=== PATIENT | female | born 1940 | race Caucasian/White ===

== ENCOUNTER → 2020-09-27 13:11 | Outpatient (BNVA) | payer MEDICARE, SELFPAY | PROVIDERS: Visit Provider Internal Medicine Cardiovascular Disease | DX: I51.7 Cardiomegaly (principal); I25.3 Aneurysm of heart; I83.90 Asymptomatic varicose veins of unspecified lower extremity | CPT/HCPCS: 93005; 99212 ==

== ENCOUNTER → 2021-09-26 12:53 | Outpatient (BNVA) | payer MEDICARE, SELFPAY | PROVIDERS: PCP Family Medicine; Visit Provider Internal Medicine Cardiovascular Disease | DX: I51.7 Cardiomegaly (principal); I25.3 Aneurysm of heart; R00.2 Palpitations | CPT/HCPCS: 93005; 99212 ==

== ENCOUNTER → 2021-11-14 09:22 | Outpatient (REF) | payer MEDICARE, SELFPAY ==
--- NOTE | 2021-11-14 09:25 | CA_ITS ---
Transthoracic Echocardiogram Patient (Last, First, Middle): Maribel Murray A Gender: Female Date of : 1940 Age: 81 Procedure Date: 11/14/2021 Procedure Type: Transthoracic Echocardiogram Location: OP Height: 170.18 cm Weight: 62.6 kg BSA: 1.73 m2 Heart Rate: bpm BP: 132 / 84 mmHg Email Developer: JULIO Referring MD: Horacio Stevenson MD Symptoms: I25.3 - Aneurysm of heart Study Quality: Good Conclusions: - Normal left ventricular size and systolic function. - Normal right ventricular cavity size and systolic function. - The left atrium is mildly dilated. The right atrium is severely dilated Findings Left Ventricle Normal left ventricular size and systolic function. There is mildly increased left ventricular wall thickness. The visually estimated ejection fraction is between 65-70%. There is no evidence of regional wall motion abnormalities. Diastolic function is normal for age. Normal global longitudinal strain. Right Ventricle Normal right ventricular cavity size and systolic function. Atria The left atrium is mildly dilated. The right atrium is severely dilated. Aortic Valve Normal aortic valve structure and function. There is no aortic valve stenosis. There is no aortic valve regurgitation. Mitral Valve The mitral valve appears normal. There is trace mitral valve regurgitation. There is no mitral valve stenosis. Pulmonic Valve Normal pulmonic valve structure and function. There is trace pulmonic valve regurgitation. Tricuspid Valve Normal tricuspid valve structure. There is mild tricuspid valve regurgitation. Normal right atrial pressure. There is no evidence of pulmonary hypertension. Great Vessels All visible segments of the aorta are normal in size. The visualized portions of the pulmonary artery and branches are normal. Venous The inferior vena cava is normal in size and collapses greater than 50% with inspiration. Pericardium/Pleural There is no evidence of pericardial effusion. Prior Study Comparison Changes noted compared to prior study dated: 08/14/2018. RA severely dilated. Measurements 2D Linear Measurements IVSd: 1.01 0.6-0.9/0.6-1.0 cm LVIDd: 4.44 3.9-5.3/4.2-5.9 cm LVIDd Index: 2.57 2.4-3.2/2.2-3.1 cm/m2 LVIDs: 2.61 2.0-3.6 cm LVPWd: 0.94 0.7-1.1 cm LA Diam: 3.40 2.7-3.8/3.0-4.0 cm LAIDs Index: 1.97 1.5-2.3 cm/m2 LV Mass: 180.20 67-162/88-224 g LV Mass Index: 104.16 43-95/49-115 g/m2 LVOT Diam: 2.00 3.0+(-)1.3 cm 2D Systolic Function EF 4C: 76.90 >55% EF 2C: 78.90 >55% EF BiP: 78.30 >55% Mitral Valve MV Pk E: 0.77 MV PK A: 0.67 MV Decel Time: 270.00 E/A: 1.10 E'Lateral: 12.20 E'Medial: 7.40 E/E' Med: 10.30 E/E' Lat: 6.30 PHT: 79.00 MVA PHT: 2.78 Decel [place]: 2.84 Aortic Valve AoV Pk Luis: 1.47 AoV Mn Luis: 1.14 AoV VTI: 0.40 AoV Pk Grad: 9.00 Aov Mn Grad: 6.00 RUBEN Cont.VTI: 2.10 LVOT LVOT Pk Luis: 1.06 LVOT Mn Luis: 0.77 LVOT VTI: 0.26 LVOT Pk Grad: 4.00 LVOT Mn Grad: 3.00 LVOT Diam: 2.00 LVOT Area: 3.14 Diastolic Function MV Pk E: 0.77 MV Pk A: 0.67 E/A: 1.10 E'Medial: 7.40 E/E' Med: 10.30 E' Laterial: 12.20 E/E' Lat: 6.30 Right Ventricle TAPSE (mm): 24.20 TVS' Luis: 13.80 Tricuspid Valve TR Pk Luis: 2.82 TR Pk Grad: 32.00 RA Press: 3.00 RVSP: 35.00 Great Vessels Aorta Sinus of Valsalva: 3.17 2.0-3.[address] [place]: 2.83 1.7-3.4 cm Ao Asc: 3.20 2.1-3.4 cm Ao Arch: 3.00 Updated in Other Vendor System with Status of Final Horacio Stevenson MD electronically signed on 11/15/2021 1:10:54 PM with status of Final
== END ==
LOC: HO.CARD 09:22
PROVIDERS: PCP Family Medicine; Visit Provider Internal Medicine Cardiovascular Disease
DX: I25.3 Aneurysm of heart (principal)
CPT/HCPCS: 93306

== ENCOUNTER → 2021-12-10 13:10 | Outpatient (BNVA) | payer MEDICARE, SELFPAY | PROVIDERS: PCP Family Medicine; Referring Provider Family Medicine; Visit Provider Internal Medicine Cardiovascular Disease | DX: I51.7 Cardiomegaly (principal); R00.2 Palpitations; Z79.82 Long term (current) use of aspirin | CPT/HCPCS: 99212 ==

== ENCOUNTER 2022-06-12 13:48 | Outpatient (REF) | payer MEDICARE, SELFPAY ==
[2022-06-14 14:41] LABS: IgA 111 mg/dL (70-320); IgG 985 mg/dL (600-1540); IgM 61 mg/dL (50-300)
== END 2022-06-12 13:49 | disposition home or self-care (01) ==
LOC: HO.LAB 13:48
PROVIDERS: PCP Family Medicine; Visit Provider Internal Medicine Cardiovascular Disease
DX: G62.9 Polyneuropathy, unspecified (principal); I51.7 Cardiomegaly; I25.3 Aneurysm of heart
CPT/HCPCS: 82784; 86334; 86335; 99212

== ENCOUNTER 2022-06-17 07:21 | Day surgery (SDC) | payer MEDICARE, SELFPAY ==
--- NOTE | 2022-06-14 13:11 | MHC.SHP ---
Pre-Procedural Eval Section A Date of Service: 06/14/22 The patient is an INPATIENT: No Changes since office visit: No Cold of Flu in the past 2 weeks, No New Medical Problems, No Changes in Medication and No Patient answered all questions The History & Physical has been completed within 30 days and I have reviewed it.: Yes Section B Chief Complaint: Age-related nuclear cataract, right eye Allergies: Allergies Allergy/AdvReac Type Severity Reaction Status Date / Time No Known Allergies Allergy Verified 06/12/22 13:14 [No Known Allergies*] Plan Diagnosis/Plan: Unchanged I have reviewed the history and physical and performed a pertinent physical examination on my patient. No changes have occurred unless specified.
[2022-06-17 08:17] VITALS: BMI 21.6
[2022-06-17 08:19] VITALS: BP 143/62; PULSE 57; RESP 18; TEMP 36.6; O2SAT 96
[2022-06-17] MEDS: Tetracaine HCl/PF 0.5% Oph Sol 4 ML DROPS 1 DROP EYE-RIGHT (08:22)
[2022-06-17] MEDS: Cyclopentolate 1 % Ophth Sol 2 ML DRPBTL 1 DROP EYE-RIGHT ×3 (08:23→08:37)
[2022-06-17] MEDS: Ketorolac Tromethamine 0.5% Op 5 ML DROPS 1 DROP EYE-RIGHT ×3 (08:23→08:38)
[2022-06-17] MEDS: Phenylephrine HCL 2.5% Oph SoL 2 ML BOTTLE 1 DROP EYE-RIGHT ×3 (08:23→08:38)
[2022-06-17] MEDS: Tropicamide 1 % Ophth Sol 3 ML BTL 1 DROP EYE-RIGHT ×3 (08:23→08:37)
--- NOTE | 2022-06-17 08:39 | HO.ANESPROP2 ---
HPI - Anesthesia Eval Consult details Narrative: Right eye cataract PMF Active Problems Active Problems: All Active Problems (Updated 06/12/22 @ 21:05 by Horacio Stevenson MD) Neuropathy (Acute) Biatrial enlargement (Acute) Atrial septal aneurysm (Acute) Varicose vein of leg (Acute) Palpitations (Acute) Past Medical History Medical History Allergic rhinitis Biatrial enlargement Chronic cough Hypothyroid Osteoporosis Family History Family History Mother Colon cancer Father COPD (chronic obstructive pulmonary disease) Family history of problems with anesthesia: No Surgical History Surgical History History of cataract surgery History of excision of pterygium History of lumpectomy History of tonsillectomy Hx of colonoscopy History of Problems with Anesthesia: No Social History Social History Alcohol intake: current Alcohol intake frequency: 0-2 drinks per day Alcohol type: wine Patient Tobacco Use Status: Former Tobacco user Quit Date: 1989 Smoked: 20 +/- Advance Directives: No Advance Directives Information Provided: Yes Meds Allergies Allergy/AdvReac Type Severity Reaction Status Date / Time No Known Allergies Allergy Verified 06/12/22 13:14 [No Known Allergies*] Active Medications: Current Medications Povidone Iodine (Povidone Iodine 5 % Ophth Soln 30 Ml Bottle) 1 appl EYE-RIGHT PREOP PRN PRN Reason: Pre-Op Surgical Implant Prophy Home Medications Medication Instructions Recorded Confirmed Last Taken Type aspirin 81 mg tablet,delayed 81 mg PO DAILY 09/27/20 06/12/22 Unknown History release (Adult Low Dose Aspirin) calcium citrate 315 mg 1 tab PO DAILY 09/27/20 06/12/22 Unknown History calcium-vitamin D3 6.25 mcg (250 unit) tablet (Citracal + Vitamin D Maximum) levothyroxine 75 mcg tablet 75 mcg PO DAILY 09/27/20 06/12/22 Unknown History multivitamin 1 tab PO DAILY 09/27/20 06/12/22 Unknown History cetirizine 10 mg tablet 10 mg PO DAILY 06/12/22 06/12/22 Unknown History melatonin 5 mg tablet 5 mg PO BEDTIME PRN Sleep 06/12/22 06/12/22 Unknown History Exam Exam Date and Time: June 17, 2022 0839 Height,Weight and Vital Signs: Height 5 ft 7 in Weight 62.596 kg Last Vital Signs Temp 97.9 F 06/17/22 08:19 Pulse 57 06/17/22 08:19 Resp 18 06/17/22 08:19 BP 143/62 H 06/17/22 08:19 Pulse Ox 96 06/17/22 08:19 O2 Del Method 06/17/22 08:19 Airway Mallampati Class: II TM Dist: >3cm Neck ROM: Full Loose/Missing/Broken Teeth: No Heart: rrr+s1s2 Lungs: cta b/l Assessment and Plan Assessment Anesthesia Assessment: Anesthesia Plan Discussed and Chart Reviewed Final Anesthetic Review Family History of Problems with Anesthesia: No History of Problems with Anesthesia: No NPO: Yes ASA Class: III Final Preanesthetic Review: No Changes in Pt Med Stat, Meds/Allgs Chart Reviewed, Consent Obtained/Reviewed and Anes Risks/Benef Reviewed Patient Risk: Intermediate Procedure Risk: Low Assessment/Block/Sedation in SS: Assess/Block/Sedation-SS Anesthetic Plan Anesthetic Plan: MAC: and Agree w/ Assess. and Plan Disposition: Standard PACU
--- NOTE | 2022-06-17 09:16 | HO.PNOPHT ---
Ophthalmology Procedure Procedure Date of Service: 06/17/22 Ophthalmology Viscoelastic: Healon Duet Dual Pack Pro Ophthalmology Lenses: CHASE [id number] (24.5) Procedure Notes: PREOPERATIVE DIAGNOSIS: Uncontrolled glaucoma right eye POSTOPERATIVE DIAGNOSIS: Same PROCEDURE: Trabeculectomy right eye SURGEON: Juvenal Haile M.D. ANESTHESIA: Topical with sedation ESTIMATED BLOOD LOSS: None COMPLICATIONS: None After obtaining informed consent, the patient was brought to the operating room suite and placed in a supine position. After adequate sedation per Anesthesia, drops of Tetracaine were given to the right eye. The eye was then prepped and draped in the usual sterile fashion. The operating room microscope was positioned over the right eye and a lid speculum placed. A peritomy was created utilizing a combination of sharp and blunt dissection with Autumn scissors. Hemostasis was then achieved utilizing a wet-field cautery. A guarded blade was utilized to create a partial thickness scleral incision 2 mm posterior to the limbus. This was advanced with a crescent blade into clear cornea. A paracentesis was created temporally, followed by instillation of Viscoelastic superiorly. Attention was directed back to the scleral incision site where the anterior chamber was entered utilizing a 2.85 mm keratome. A Maggi punch was utilized to remove trabecular tissue. Aqueous humor was monitored for adequate egress followed by closure of the conjunctiva with Vicryl suture. BSS was instilled into the anterior chamber creating a superior bleb with no obvious leaks superiorly. The lid speculum was removed. Topical drops of antibiotics, steroids and Atropine were then given. The patient tolerated the procedure well and will be followed up in the a.m.
--- NOTE | 2022-06-17 09:17 | HO.PNOPHT ---
Ophthalmology Procedure Procedure Date of Service: 06/17/22 Ophthalmology Viscoelastic: Healon Duet Dual Pack Pro Ophthalmology Lenses: TECNIS AH7667 (27.5) Procedure Notes: PREOPERATIVE DIAGNOSIS: Decreased visual acuity right eye secondary to cataract POSTOPERATIVE DIAGNOSIS: Same PROCEDURE: Right cataract extraction with intraocular lens insertion SURGEON: Juvenal Haile M.D. ANESTHESIA: Topical/MAC ESTIMATED BLOOD LOSS: None COMPLICATIONS: None After obtaining informed consent, the patient was brought to the operating room suite and placed in the supine position. After adequate sedation per anesthesia, topical drops of Tetracaine were given to the right eye. The eye was then prepped and draped in the usual sterile fashion. The operating room microscope was then positioned over the operative eye and a lid speculum placed. A paracentesis was created. Viscoelastic was then instilled into the anterior chamber. A three plane incision was then created temporally, utilizing a 2.85 mm keratome. Capsulotomy forceps were then utilized to create a circular tear capsulotomy. Hydrodissection and hydrodelineation were carried out until adequate mobilization of the nucleus occurred. Phacoemulsification was then utilized to remove the dense central nucleus followed by removal of the cortical material utilizing the automated aspiration irrigation unit. Viscoelastic was instilled into the posterior capsular bag followed by placement of a posterior chamber intraocular lens without difficulty. The residual Viscoelastic was then removed utilizing the automated IA machine. The wound was checked and found to be watertight. The patient tolerated the procedure well and the lid speculum was removed. Intracameral injection of Vigamox 0.1 mL followed by a subtenon injection of Kenalog-40 0.2 mL were administered. The patient will be seen in the a.m.
[2022-06-17 09:39] VITALS: BP 137/65; PULSE 51; RESP 16; TEMP 36.4; O2SAT 100
== END 2022-06-17 10:29 | disposition home or self-care (01) ==
PROVIDERS: PCP Family Medicine; Visit Provider Ophthalmology
PROC: (CPT 66985; principal; 2022-06-17 09:10)
DX: H25.11 Age-related nuclear cataract, right eye (principal); H54.7 Unspecified visual loss; Z96.1 Presence of intraocular lens; E03.9 Hypothyroidism, unspecified; M81.0 Age-related osteoporosis without current pathological fracture; Z79.82 Long term (current) use of aspirin; Z88.8 Allergy status to other drugs, medicaments and biological substances; Z87.891 Personal history of nicotine dependence
CPT/HCPCS: 66984; J2250; J3300; V2632

== ENCOUNTER → 2022-06-27 07:25 | Outpatient (REF) | payer MEDICARE, SELFPAY ==
--- NOTE | 2022-06-27 07:27 | HM_ITS ---
Conclusion: 1. Patient was monitored for total period of 7 days and 3 hours 2. Baseline was normal sinus with average heart rate of 55 beats per minute 3. Frequent sinus bradycardia with 68% of time heart rate below 60 beats per minute with lowest heart rate of 41 beats per minute 4. No significant pauses noted 5. Total of 8089 PACs accounting for frequent PACs, 2.2% of total burden. 6. Total of 11 short episodes of supra tachycardia longest lasting 7 beats at 187 beats per minute 7. Patient reported to events 1 of which correlated with isolated PACs MTDD
== END ==
LOC: HO.CARD 07:25
PROVIDERS: PCP Family Medicine; Visit Provider Internal Medicine Cardiovascular Disease
DX: R00.2 Palpitations (principal)
CPT/HCPCS: 93242

== ENCOUNTER 2023-06-02 12:37 | Outpatient (AMB) | payer MEDICARE, SELFPAY ==
--- NOTE | 2023-06-02 12:43 | MHC.OFFVIS ---
Intake Vital Signs 06/02/23 12:44 Height 5 ft 7 in Weight 141 lb 1.533 oz BMI 22.1 BP 120/70 Blood Pressure Location Lt brachial Position Sitting Pulse 58 Intake Visit Reasons: 1 yr f/up Intake Note: 1 year follow-up with ekg feeling good Host Coordinator Required: No Allergies No Known Allergies [No Known Allergies*] Allergy (Verified 06/17/22 08:41) Medication List - Last Reconciled 06/02/23 by Horacio Stevenson MD aspirin (Adult Low Dose Aspirin) 81 mg PO DAILY calcium citrate-vitamin D3 315 mg-6.25 mcg (250 unit) (Citracal + Vitamin D Maximum) 1 tab PO DAILY cetirizine 10 mg PO DAILY levothyroxine 75 mcg PO DAILY magnesium 200 mg PO DAILY multivitamin 1 tab PO DAILY HPI HPI Comments History of Present Illness Details 81 female who had routine ECG before eye surgery for pterygium. ECG showed atrial enlargement. She had echo which showed mild biatrial enlargement and interatrial septal aneurysm without PFO. She is active and has no symptoms. She has no h/o stroke. Echo: normal EF, interatrial septal aneurysm, biatrial enlargement, moderate TR, mild pulmonary hypertension. Previous ECG: NSR, LAE, short DE interval. no ischemic changes. She wished to have repeat echocardiography. ECHO was performed and showed that the right atrium is more enlarged than before. It was [id number] enlarged. She has no new symptoms. No chest pain or shortness of breath. No heart failure symptoms. Continues to have some tingling in her feet. Continues to drink 1 glass of wine every night. Denying shortness of breath or chest pain. 06/02/23: She returns for f/u. She had CXR which showed opacity leading to CT which has shown bronchiectasis. She is taking her meds. She is due to see pulm. Denying CP or SOB. She has chronic cough. [facility] Medical History Allergic rhinitis Biatrial enlargement Chronic cough Hypothyroid Osteoporosis Surgical History History of cataract surgery History of excision of pterygium History of lumpectomy History of tonsillectomy Hx of colonoscopy Family History Mother Colon cancer Father COPD (chronic obstructive pulmonary disease) Social History Alcohol intake: current Alcohol intake frequency: 0-2 drinks per day Alcohol type: wine Patient Tobacco Use Status: Former Tobacco user Quit Date: 1989 Years Smoked: 20 +/- Review of Systems Const Denies chills, Denies fatigue, Denies fever(s), Denies frequent falls, Denies weakness, Denies weight gain and Denies weight loss ENT Denies dizziness Card Denies chest pain, Denies leg edema, Denies lightheadedness, Denies palpitations, Denies dyspnea, Denies dyspnea on exertion, Denies orthopnea and Denies other (loss of consciousness) Resp Denies cough, Denies dyspnea and Denies dyspnea on exertion GI Denies hematochezia and Denies change in stool character Musc Denies abnormal gait, Denies muscle weakness, Denies numbness, Denies radiating pain into limb and Denies tingling Neuro Denies abnormal gait, Denies dizziness, Denies frequent falls, Denies numbness, Denies tingling and Denies weakness Endo Denies fatigue and Denies palpitations Physical Exam Vital Signs: Last Vital Signs Pulse 58 06/02/23 12:44 BP 120/70 06/02/23 12:44 BMI result Body Mass Index 22.1 GENERAL APPEARANCE: in no acute distress, anxious appearing. NECK/THYROID: no carotid bruit, no jugular venous distention. SKIN: no suspicious lesions, warm and dry. HEART: no murmurs, regular rate and rhythm, S1, S2 normal. LUNGS: clear to auscultation bilaterally. ABDOMEN: normal, bowel sounds present, soft, nontender, nondistended. EXTREMITIES: no edema. Bilateral varicose veins. PERIPHERAL PULSES: equal. NEUROLOGIC: nonfocal, alert and oriented. Office Procedures EKG Details: Sinus bradycardia 58 beats per minute, normal axis, nonspecific ST changes, QTC 408 milliseconds. [id number], Complete Assessment & Plan Assessment & Plan (1) Biatrial enlargement: Code(s): I51.7 - Cardiomegaly (2) Atrial septal aneurysm: Code(s): I25.3 - Aneurysm of heart Plan Pleasant 82 year female here for follow-up. She has history of biatrial enlargement. No significant symptoms. Clinically stable. She has bronchiectasis and will be following with pulmonology. Continue aspirin. Thank you for allowing me to participate in the care of your patient. Please feel free to contact me if you have any questions. Coding Level of Care Code Est Pt Level 3 (81819) Diagnoses Biatrial enlargement I51.7 Atrial septal aneurysm I25.3 CPT Codes EKG - CPT: 86957-[id number], Complete ([id number])
[2023-06-02 12:44] VITALS: BP 120/70; PULSE 58; BMI 22.1
== END 2023-06-02 13:17 | disposition home or self-care (01) ==
PROVIDERS: PCP Family Medicine; Visit Provider Internal Medicine Cardiovascular Disease
DX: I51.7 Cardiomegaly (principal); I25.3 Aneurysm of heart
CPT/HCPCS: 93010; 99213

== ENCOUNTER → 2023-06-02 12:37 | Outpatient (BNVA) | payer MEDICARE, SELFPAY | PROVIDERS: PCP Family Medicine; Visit Provider Internal Medicine Cardiovascular Disease | DX: I51.7 Cardiomegaly (principal); I25.3 Aneurysm of heart | CPT/HCPCS: 93005; 99212 ==

== ENCOUNTER 2025-02-10 20:56 | Emergency (ER) | payer MEDICARE, SELFPAY ==
--- NOTE | ~2025-02-10 | XR_ITS ---
CLINICAL HISTORY: low suspicion sbo, has hx 1 view abdomen Comparison: None provided Findings: Mild atelectasis in the large cardiomegaly in the [id number]. No small bowel dilatation. Moderate to severe stool burden in the imaged abdomen. Degenerative changes include imaged hips. Superficial opacities noted. IMPRESSION: 1. No small bowel obstruction. 2. Moderate to severe stool burden. This document has been electronically signed by: Michael Ribeiro MD on 02/10/2025 23:11:31
[2025-02-10 21:11] VITALS: BP 144/71; PULSE 85; RESP 16; TEMP 37.6; O2SAT 97; BMI 20.2
[2025-02-10] MEDS: Ondansetron ODT 4 MG TAB.RAPDIS TRANSLINGU (21:22)
--- NOTE | 2025-02-10 21:28 | MHC.EDTECH ---
21:26 Urine cup given to patient for sample. Instructed to come up to the triage desk and inform the nurse.
[2025-02-10 21:33] LABS: MANUAL DIFF FLAG NO
[2025-02-10 21:38] VITALS: BP 139/64; PULSE 80; RESP 14; TEMP 36.9; O2SAT 100
[2025-02-10 21:39] LABS: Basophils Percent Auto 0.7 % (0-2); Hematocrit 36.4 % (37.0-47.0); Hemoglobin 13.1 g/dl (12.0-16.0); Imm Gran Abs Auto 0.01 X10*3/uL (0.00-0.03); Imm Gran Pct Auto 0.2 % (0.0-0.4); Lymphocytes Absolute Auto 0.5 X10*3/uL (1.2-4.9); Mean Corpuscular Volume 88.8 fL (80.0-98.0); Mean Platelet Volume 9.4 fL (9.4-12.3); Monocytes Absolute Auto 0.4 X10*3/uL (0.1-1.2); Monocytes Percent Auto 8.3 % (2-11); Neutrophils Absolute Auto 3.5 x10*3/uL (2.0-8.3); Neutrophils Percent Auto 79.8 % (45-73); Platelet Count 154 X10*3/uL (160-400); Red Cell Distribution Width 13.3 % (11.0-16.0); White Blood Count 4.4 X10*3/uL (4.8-10.8)
[2025-02-10 21:47] LABS: Alanine Aminotransferase 17 U/L (0-31); Albumin Level 4.4 g/dL (3.5-5.0); Alkaline Phosphatase 49 U/L (39-117); Anion Gap 11 (12-20); Aspartate Amino Transferase 20 U/L (5-31); Bilirubin Total 0.5 mg/dL (0.0-1.0); Blood Urea Nitrogen 16 mg/dL (9-16); Calcium 9.7 mg/dL (8.4-10.2); Carbon Dioxide 21 mmol/L (22-29); Chloride 102 mmol/L (96-108); Creatinine Clr Calc Pharmacy 45.2; Estimated Glomerular Filt Rate > 60; Glucose Random 154 mg/dL (60-115); Lipase 19 U/L (8-78); Magnesium 2.1 mg/dL (1.6-2.6); Potassium 3.8 mmol/L (3.3-5.1); Sodium 130 mmol/L (135-145); Total Protein 6.8 g/dL (6.5-8.0)
--- NOTE | 2025-02-10 21:58 | ED.NAVMDI ---
HPI - Nausea/Vomiting/Diarrhea General Chief complaint: Nausea/Vomiting/Diarrhea Stated complaint: vomiting,fever,bodyaches Time Seen by Provider: 02/10/25 21:39 Source: patient Mode of arrival: ambulatory Limitations: no limitations History of Present Illness ED Provider: Dr. Shantel Riley HPI Narrative: patient comes to the emergency room complaining of 3 days of general malaise, abdominal discomfort without any significant pain. Upset stomach, burping, dry heaving. Patient denies vomiting ordiarrhea. Patient states that prior to arriving to the emergency room, at home she took her temperature and it was 101 F. Related Data Home Medications ?Medication ?Instructions ?Recorded ?Confirmed aspirin 81 mg tablet,delayed 81 mg PO DAILY 09/27/20 06/02/23 release (Adult Low Dose Aspirin) calcium 315 mg (as 1 tab PO DAILY 09/27/20 06/02/23 citrate)-vitamin D3 6.25 mcg (250 unit) tablet (Citracal + Vitamin D Maximum) levothyroxine 75 mcg tablet 75 mcg PO DAILY 09/27/20 06/02/23 multivitamin 1 tab PO DAILY 09/27/20 06/02/23 cetirizine 10 mg tablet 10 mg PO DAILY 06/02/23 06/02/23 magnesium 200 mg tablet 200 mg PO DAILY 06/02/23 06/02/23 Allergies Allergy/AdvReac Type Severity Reaction Status Date / Time No Known Allergies (No Known Allergy Verified 02/10/25 21:13 Allergies*) Review of Systems Review of Systems: Constitutional : No Weight loss, complaining of fever, chills, fatigue, generalized malaise ENT/Mouth : No Hearing loss, No Ear Pain, No Nasal Congestion, No Sinus Pain, No Hoarseness, No sore throat, No Rhinorrhea, No Swallowing Difficulty Eyes: No Eye Pain, No Swelling, No Redness, No Foreign Body, No Discharge, No Vision Changes Cardiovascular : No Chest Pain, No SOB, No Dyspnea on Exertion, No Orthopnea, No Edema, No Palpitations Respiratory : No Cough, No Sputum, No Wheezing, No Smoke Exposure, No Dyspnea Gastrointestinal : complaining of nausea/dry heaving, No Vomiting, No Diarrhea, No Constipation, complaining of diffuse abdominal discomfort without any significant pain Genitourinary : no irregular bleeding, No Dysuria, No Urinary Frequency, No Hematuria, No Urinary Incontinence, No Urgency, No Flank Pain, No Urinary Flow Changes, No Hesitancy Musculoskeletal : No joint pain, No Myalgias, No Joint Swelling Skin : No Skin Lesions, No rash Neuro : No Weakness, No Numbness, No Paresthesias, No Loss of Consciousness, No Dizziness, No Headache Psych : No Anxiety/Panic, No Depression, No SI/HI/AH/VH, No Social Issues, Heme/Lymph: No Bruising, No Bleeding,No Lymphadenopathy Endocrine : No Polyuria, No Polydipsia, No Temperature Intolerance [facility] Past Medical History Medical History Allergic rhinitis Biatrial enlargement Chronic cough Hypothyroid Osteoporosis Surgical History History of cataract surgery History of excision of pterygium History of lumpectomy History of tonsillectomy Hx of colonoscopy Family History Family History Mother Colon cancer Father COPD (chronic obstructive pulmonary disease) Social History Social History Alcohol intake: current Alcohol intake frequency: 0-2 drinks per day Alcohol type: wine Patient Tobacco Use Status: Former Tobacco user Years Smoked: 20 +/- Advance Directives: No Advance Directives Information Provided: No Do you have a plan to hurt others: No Plan Physical Exam Vital Signs: Vital Signs: Last Vital Signs Temp 98.5 F 02/11/25 00:29 Pulse 70 02/11/25 00:59 Resp 16 02/11/25 00:29 BP 100/52 L 02/11/25 00:59 Pulse Ox 97 02/11/25 00:29 O2 Del Method Room Air 02/11/25 00:29 BMI result Body Mass Index 20.2 Const: Other: Appearance: Alert. Oriented X3. No acute distress. well-appearing Eyes: Pupils equal, round and reactive to light. ENT: Pharynx normal. Neck: Normal inspection. Neck supple. No lymph nodes noted. No crepitus CVS: Normal heart rate and rhythm. Pulses normal. Normal S1 and S2 Respiratory: No respiratory distress. Breath sounds normal. No Wheezing. No rales Abdomen: Soft and nontender. no rebound, no guarding,No rigidity. No distention. Skin: Skin warm and dry. Normal skin color. Normal skin turgor. Extremities: No lower extremity edema. No Lacerations. No Rash Neuro: Oriented X 3. No motor deficit. No sensory deficit. Moving all extremities. No slurred speech. CN 2 through 12 grossly intact Psych: calm, cooperative, normal affect Course Course Course Narrative: patient complaining of generalized malaise, nausea with dry heaving, no vomiting or diarrhea, generalized abdominal discomfort without significant pain. All of patient's labs and imaging pending. Patient receiving IV fluids, Zofran and p.o. acetaminophen on arrival vitals were checked, vitals stable: Blood pressure 139/64, pulse 80, respirations 14, temperature 98.5 degrees, oxygen saturation 100% on room air Medications Administered Discontinued Medications Generic Name Dose Route Start Last Admin Trade Name Freq PRN Reason Stop Dose Admin Acetaminophen 975 mg 02/10/25 21:54 02/10/25 22:16 Acetaminophen 325 Mg Tablet PO 02/10/25 21:55 975 mg ONCE ONE Administration Famotidine 20 mg 02/10/25 21:52 02/10/25 22:14 Famotidine/Pf 20 Mg/2 Ml Vial IVPUSH 02/10/25 21:53 20 mg ONCE ONE Administration Sodium Chloride 1,000 mls @ 999 mls/hr 02/10/25 21:52 02/10/25 23:14 Ns IVCONT 02/10/25 22:52 Infused .Q1H1M ONE Infusion Ondansetron HCl 4 mg 02/10/25 21:19 02/10/25 21:22 Ondansetron Odt 4 Mg Tab.Rapdis TRANSLINGU 02/10/25 21:20 4 mg ONCE ONE Administration Prochlorperazine Edisylate 5 mg 02/10/25 21:52 02/10/25 22:14 Prochlorperazine Edisylate 10 Mg/2 Ml Vial IVPUSH 02/10/25 21:53 5 mg ONCE ONE Administration Medical Decision Making Medical Decision Making [facility] Narrative: My interpretation of EKG: Normal sinus rhythm, heart rate 58, no ST segment depression or elevation, nonspecific T-wave inversion in lead 3, QTC 435 My interpretation of labs: No significant abnormality in patient's hematology, chemistry shows a sodium of 130, no other significant electrolyte abnormalities, normal magnesium, normal LFTs, normal lipase, urinalysis shows trace leukocyte esterase, no bacteria, no nitrite, negative for UTI. Serology negative for influenza RSV and COVID KUB negative for any acute pathology. Patient received a L of normal saline, Zofran, famotidine and Compazine Orthostatic vitals negative We repeated patient's chemistry, sodium did not significantly improved but now it is 131. However, the patient states that she feels significantly better, ready to go home. Differential Diagnosis Differential Diagnoses: The differential diagnosis associated with the presentation includes (Hyponatremia, dehydration, orthostatic hypotension, viral syndrome) Admission/Observation Consideration of admission/observation: Escalation of care including admission/observation considered (Given patient's age and symptoms, observation was considered) Lab Data MDM Lab Attestation statement: I reviewed the patient's lab results. 02/10/25 21:02/11/25 00:01 Labs: Lab Results 02/10/25 02/11/25 02/11/25 Range/Units : 00:01 00:07 WBC 4.4 L (4.8-10.8) X10*3/uL RBC 4.10 L (4.20-5.50) X10*6/uL Hgb 13.1 (12.0-16.0) g/dl Hct 36.4 L (37.0-47.0) % MCV 88.8 (80.0-98.0) fL MCH 32.0 (27.0-33.0) pg MCHC 36.0 H (31.0-35.0) g/dl RDW 13.3 (11.0-16.0) % Plt Count 154 L (160-400) X10*3/uL MPV 9.4 (9.4-12.3) fL Immature Gran % (Auto) 0.2 (0.0-0.4) % Neut % (Auto) 79.8 H (45-73) % Lymph % (Auto) 11.0 L (20-40) % [place] % (Auto) 8.3 (2-11) % Eos % (Auto) 0.0 (0-4) % Baso % (Auto) 0.7 (0-2) % Lymph # (Auto) 0.5 L (1.2-4.9) X10*3/uL [place] # (Auto) 0.4 (0.1-1.2) X10*3/uL Eos # (Auto) 0.0 (0.0-0.4) X10*3/uL Baso # (Auto) 0.0 (0.0-0.2) X10*3/uL Abs Immat Gran (auto) 0.01 (0.00-0.03) X10*3/uL Absolute Neuts (auto) 3.5 (2.0-8.3) x10*3/uL Absolute Nucleated RBC 0.000 (0.0-0.012) X10*3/uL Nucleated RBC % (auto) 0.0 (0.0-0.2) /100WBC Sodium 130 L 131 L (135-145) mmol/L Potassium 3.8 3.9 (3.3-5.1) mmol/L Chloride 102 106 (96-108) mmol/L Carbon Dioxide 21 L 18 L (22-29) mmol/L Anion Gap 11 L 11 L (12-20) BUN 16 14 (9-16) mg/dL Creatinine 0.87 0.69 (0.5-1.4) mg/dL Estim Creat Clear Calc 45.2 57.0 Estimated GFR > 60 > 60 Random Glucose 154 H 126 H (60-115) mg/dL Calcium 9.7 8.5 D (8.4-10.2) mg/dL Magnesium 2.1 (1.6-2.6) mg/dL Total Bilirubin 0.5 (0.0-1.0) mg/dL AST 20 (5-31) U/L ALT 17 (0-31) U/L Alkaline Phosphatase 49 (39-117) U/L Total Protein 6.8 (6.5-8.0) g/dL Albumin 4.4 (3.5-5.0) g/dL Lipase 19 (8-78) U/L Urine Color Yellow Urine Appearance Clear Urine pH 7.5 (5.0-9.0) Ur Specific [place] 1.025 (1.005-1.025) Urine Protein 30 (1+) H (Neg-Trace) mg/dL Urine Glucose (UA) Negative (Negative) mg/dL Urine Ketones 15 (Negative) mg/dL Urine Blood Negative (Negative) Urine Nitrite Negative (Negative) Ur Leukocyte Esterase Trace H (Negative) Urine RBC 0-2 (0-2) /HPF Urine WBC 0-5 (0-5) /HPF Ur Squamous Epith Cells 0-2 (0-2) /HPF Urine Bacteria None Seen (None Seen) Hyaline Casts 0-2 (0-2) /LPF Influenza Type A (PCR) NEGATIVE (Negative) Influenza Type B (PCR) NEGATIVE (Negative) RSV RNA Qual (PCR) NEGATIVE (Negative) SARS-CoV-2 RNA (RT-PCR) NEGATIVE (Negative) Independent Interpretation I performed an independent interpretation of an: EKG and Plain X-Ray Radiology Impression Discussion of test interpretation with radiology: I have reviewed the radiologist's reading. Radiologist Impression: Mild atelectasis in the large cardiomegaly in the [id number]. No small bowel dilatation. Moderate to severe stool burden in the imaged abdomen. Degenerative changes include imaged hips. Superficial opacities noted. IMPRESSION: 1. No small bowel obstruction. 2. Moderate to severe stool burden. Critical Care Time Critical Care Time Critical Care Time: Yes Total Critical Care Time: 35 Attestation: I have personally provided critical care time. Time includes review of lab data, radiology results, discussion with consultants, and monitoring for potential decompensation. Intervention performed as documented. Discharge Plan Discharge Clinical Impression: Acute hyponatremia, Malaise, Abdominal discomfort Patient Disposition: Home, Self-Care Instructions: Liquids and Hydration for Athletes (ED), Hyponatremia (ED), Abdominal Pain (ED) Additional Instructions: Please make sure that you keep hydrated by drinking fluids that contain electrolytes rather than plain water. Please follow-up with your primary care physician tomorrow. If you have any worsening or new symptoms, please return to the emergency room or call 911 Prescriptions: No Action cetirizine 10 mg tablet 10 mg PO DAILY levothyroxine 75 mcg tablet 75 mcg PO DAILY multivitamin Tablet 1 tab PO DAILY aspirin [Adult Low Dose Aspirin] 81 mg tablet,delayed release (DR/EC) 81 mg PO DAILY calcium citrate-vitamin D3 [Citracal + D Maximum] 315 mg-6.25 mcg (250 unit) tablet 1 tab PO DAILY magnesium 200 mg tablet 200 mg PO DAILY Print Language: Turkmen
[2025-02-10 22:12] LABS: Influenza A PCR NEGATIVE (Negative); Influenza B PCR NEGATIVE (Negative); Resp Syncy Virus RNA Qual PCR NEGATIVE (Negative); SARS COV2 PCR INHOUSE NEGATIVE (Negative)
[2025-02-10] MEDS: 0.9 % Sodium Chloride 1,000 ML 999 ML IVCONT (22:13)
[2025-02-10] MEDS: Prochlorperazine Edisylate 10 MG/2 ML VIAL 5 MG IVPUSH (22:14)
[2025-02-10] MEDS: Famotidine/PF 20 MG/2 ML VIAL IVPUSH (22:14)
[2025-02-10] MEDS: Acetaminophen 325 MG TABLET 975 MG PO (22:16)
[2025-02-11 00:16] LABS: Appearance Urine Clear; Color Urine Yellow; Glucose Urine UA Negative (Negative); Leukocyte Esterase Urine Trace (Negative); Nitrite Urine Negative (Negative); PH 7.5 (5.0-9.0); Specific Gravity - Urine 1.025 (1.005-1.025); UMIC TRIGGER UACC YES; Urine Blood Negative (Negative); Urine Ketones 15 mg/dL (Negative); Urine Protein 30 (1+) mg/dL (Neg-Trace)
[2025-02-11 00:29] VITALS: BP 107/49; PULSE 67; RESP 16; TEMP 36.9; O2SAT 97
[2025-02-11 00:32] LABS: Anion Gap 11 (12-20); Blood Urea Nitrogen 14 mg/dL (9-16); Carbon Dioxide 18 mmol/L (22-29); Chloride 106 mmol/L (96-108); Estimated Glomerular Filt Rate > 60; Glucose Random 126 mg/dL (60-115); Potassium 3.9 mmol/L (3.3-5.1); Sodium 131 mmol/L (135-145)
[2025-02-11 00:37] LABS: Bacteria Urine None Seen (None Seen); Hyaline Casts Urine 0-2 /LPF (0-2); RBC Urine 0-2 /HPF (0-2); Squamous Epithelial Cell Urine 0-2 /HPF (0-2); WBC Urine 0-5 /HPF (0-5)
[2025-02-11 00:56] VITALS: BP 105/42; PULSE 66
[2025-02-11 00:57] VITALS: BP 109/55; PULSE 69
[2025-02-11 00:59] VITALS: BP 100/52; PULSE 70
[2025-02-11 01:23] LABS: Calcium 8.5 mg/dL (8.4-10.2)
--- NOTE | 2025-02-11 01:32 | ECG_ITS ---
Test Reason : WEAKNESS Blood Pressure : */* mmHG Vent. Rate : 58 BPM Atrial Rate : 58 BPM P-R Int : 150 ms QRS Dur : 92 ms QT Int : 444 ms P-R-T Axes : 31 16 6 degrees QTcB Int : 435 ms Sinus bradycardia Nonspecific ST and T wave abnormality Abnormal ECG When compared with ECG of 03-Aug-2018 15:10, Nonspecific T wave abnormality, worse in Anterolateral leads Referred By: Shantel Riley Electronically Signed By: PRIYANKA NEWSOME
[2025-02-11 01:54] VITALS: BP 100/52; PULSE 70; RESP 16; TEMP 37; O2SAT 98
== END 2025-02-11 01:55 | disposition home or self-care (01) ==
PROVIDERS: Emergency Provider Emergency Medicine; PCP Family Medicine
DX: E87.1 Hypo-osmolality and hyponatremia (principal); R11.2 Nausea with vomiting, unspecified; R50.9 Fever, unspecified; M79.10 Myalgia, unspecified site; R10.2 Pelvic and perineal pain; Z79.899 Other long term (current) drug therapy; Z87.891 Personal history of nicotine dependence; Z03.818 Encounter for observation for suspected exposure to other biological agents ruled out
CPT/HCPCS: 0241U; 36415; 74018; 80048; 80053; 81001; 83690; 83735; 85025; 93005; 96361; 96374; 96375; 99284; J0737; J1308

== ENCOUNTER → 2025-02-10 21:52 | Outpatient (BNV) | payer MEDICARE, SELFPAY | PROVIDERS: Emergency Provider Emergency Medicine; PCP Family Medicine; Visit Provider Radiology Neuroradiology | DX: K56.41 Fecal impaction (principal); R10.9 Unspecified abdominal pain | CPT/HCPCS: 74018 ==

== ENCOUNTER → 2025-02-11 01:32 | Outpatient (BNV) | payer MEDICARE, SELFPAY | PROVIDERS: Emergency Provider Emergency Medicine; PCP Family Medicine; Visit Provider Internal Medicine | DX: R00.0 Tachycardia, unspecified (principal) | CPT/HCPCS: 93010 ==